=== PATIENT | female | born 1990 | race Caucasian/White ===

== ENCOUNTER 2017-07-07 21:47 | Emergency (ER) | payer OTHER ==
--- NOTE | 2017-07-07 21:53 | PDOC ---
History of Present Illness - General History Source: Patient Exam Limitations: No Limitations - History of Present Illness Initial Comments: 07/08/17 00:08 Patient is a 26 year old female, who is 14 weeks , with no significant past medical history who presents to the ED with complaint of bilateral lower abdominal pain that began at 9pm tonight. Patient reports experiencing sudden onset of bilateral lower abdominal pain while bathing her daughter, prompting her to come into the ED for further evaluation. She reports experiencing this pain once before, stating it was when she was in labor with her daughter. Patient describes bilateral lower abdominal pain as a sharp pain that feels like pins and needles. She reports experiencing lower back pain secondary to abdominal pain. Patient states she hasn't felt the baby since yesterday. She reports her last menstrual cycle was at the end of February. Denies chest pain, Sob. Denies nausea, vomiting. Denies chills, fevers. Denies trauma to affected area. Denies any other symptoms. Allergies: Social history: Lives with daughter. No smoking. No alcohol. Former marijuana use. Surgical history: C section. Gallbladder. Ectopic PMD: Dr. Hari Lazo. <Shmuel Damico - Last Filed: 07/08/17 00:08> <Ladonna Darden - Last Filed: 07/08/17 01:01> - General Stated Complaint: PAIN (16 WEEKS) Time Seen by Provider: 07/07/17 21:52 Past History <Shmuel Damico - Last Filed: 07/08/17 00:08> - Past Medical History Asthma: No Cancer: No Cardiac Disorders: No COPD: No Diabetes: No GI Disorders: No Disorders: No HTN: No Kidney Stones: No Seizures: No Thyroid Disease: No - Surgical History Abdominal Surgery: No Appendectomy: No Cardiac Surgery: No Cholecystectomy: No Lung Surgery: No Neurologic Surgery: No Orthopedic Surgery: No - Reproductive History PID: No - Suicide/Smoking/Psychosocial Hx Smoking History: Current every day smoker Have you smoked in the past 12 months: Yes Number of Cigarettes Smoked Daily: 20 'Breaking Loose' booklet given: 01/07/16 Hx Alcohol Use: No Drug/Substance Use Hx: Yes Substance Use Type: Cocaine (Started using cocaine at age 18 and consumes 2 bags 1-2x weekly. Last used it on 12/28/15), Marijuana (Started smoking marijuana at age 15 and consumes 6 blunts daily. Last smoked it on 12/29/15), Opiates (Started using oxycodone at age 23and consumes 10 mg 1-3x in the last 30 days. Lastused it on 02/01/15) Hx Substance Use Treatment: Yes (OPD at [facility]) <Ladonna Darden - Last Filed: 07/08/17 01:01> - Past Medical History Allergies/Adverse Reactions: Allergies Allergy/AdvReac Type Severity Reaction Status Date / Time No Known Allergies Allergy Verified 07/07/17 22:01 Home Medications: Ambulatory Orders NK [No Known Home Medication] 01/07/16 Abd/GI Specific PMHX - Complaint Specific PMHX Hepatitis: No Pancreatitis: No <Ladonna Darden - Last Filed: 07/08/17 01:01> Review of Systems - Review of Systems Able to Perform ROS?: Yes Comments:: 07/08/17 00:08 CONSTITUTIONAL: Absent: fever, chills, diaphoresis, generalized weakness, malaise, loss of appetite HEENT: Absent: rhinorrhea, nasal congestion, throat pain, throat swelling, difficulty swallowing, mouth swelling, ear pain, eye pain, visual Changes CARDIOVASCULAR: Absent: chest pain, syncope, palpitations, irregular heart rate, lightheadedness , peripheral edema RESPIRATORY: Absent: cough, shortness of breath, dyspnea with exertion, orthopnea, wheezing, stridor, hemoptysis GASTROINTESTINAL: +bilateral lower abdominal pain. Absent: abdominal distension, nausea, vomiting, diarrhea, constipation, melena , hematochezia GENITOURINARY: Absent: dysuria, frequency, urgency, hesitancy, hematuria, flank pain, genital pain MUSCULOSKELETAL: +Lower back pain. Absent: myalgia, arthralgia, joint swelling SKIN: Absent: rash, itching, pallor HEMATOLOGIC/IMMUNOLOGIC: Absent: easy bleeding, easy bruising, lymphadenopathy, frequent infections ENDOCRINE: Absent: unexplained weight gain, unexplained weight loss, heat intolerance, cold intolerance NEUROLOGIC: Absent: headache, focal weakness or paresthesias, dizziness, unsteady gait, seizure, mental status changes, bladder or bowel incontinence PSYCHIATRIC: Absent: anxiety, depression, suicidal or homicidal ideation, hallucinations. All Other Systems: Reviewed and Negative <Shmuel Damico - Last Filed: 07/08/17 00:08> *Physical Exam - Vital Signs Last Vital Signs Temp Pulse Resp BP Pulse Ox 97.8 F 90 16 123/59 100 07/07/17 22:01 07/07/17 22:01 07/07/17 22:01 07/07/17 22:01 07/07/17 22:01 - Physical Exam Comments: 07/08/17 00:08 GENERAL: Well-appearing, well-nourished. No apparent distress. HEENT: Normocephalic, atraumatic. PERRL, EOM intact. CARDIOVASCULAR: Normal S1, S2. Regular rate and rhythm. PULMONARY: Clear to auscultation bilaterally. ABDOMEN: +Tingle in lower abdomen. No vaginal bleeding. Soft, non-distended, non-tender. EXTREMITIES: Normal ROM in all four extremities. No gross deformities. SKIN: Warm, dry. No rash NEUROLOGICAL: No focal neurological deficits. <Shmuel Damico - Last Filed: 07/08/17 00:08> ED Treatment Course - ADDITIONAL ORDERS Additional order review: Laboratory Results 07/07/17 07/07/17 22:11 22:11 Beta HCG, Quant 76772.3 Blood Type B POSITIVE Antibody Screen Negative <Shmuel Damico - Last Filed: 07/08/17 00:08> Medical Decision Making - Medical Decision Making 07/08/17 00:59 Ultrasound shows gestational age 16 weeks 4 days, sooner live IUP, heart rate 146. Closed. Cervix <Ladonna Darden - Last Filed: 07/08/17 01:01> *DC/Admit/Observation/Transfer - Attestations Scribe Attestion: 07/08/17 00:08 Documentation prepared by Shmuel Damico, acting as medical staff credentialing coordinator for Ladonna Darden MD/DO. <Shmuel Damico - Last Filed: 07/08/17 00:08> <Ladonna Darden - Last Filed: 07/08/17 01:01> Diagnosis at time of Disposition: Second trimester - Discharge Dispostion Disposition: HOME Condition at time of disposition: Stable - Referrals Referrals: Selwyn Lazo [Primary Care Provider] - - Patient Instructions Printed Discharge Instructions: DI for -- Discomforts and Remedies Additional Instructions: please continue your care
[2017-07-07 22:04] VITALS: BP 123/59; PULSE 90; TEMP 97.8; BMI 26.5
== END 2017-07-08 01:08 | disposition home or self-care (01) ==
LOC: JER 21:47
DX: O26.892 Other specified pregnancy related conditions, second trimester (principal); R10.30 Lower abdominal pain, unspecified; M54.5 Low back pain; Z3A.16 16 weeks gestation of pregnancy
CPT/HCPCS: 36415; 76816-TC; 84702; 86850; 86900; 86901; 99282-25

== ENCOUNTER 2023-11-02 14:39 | Emergency (ER) | payer OTHER ==
[2023-11-02 14:56] VITALS: TEMP 98; BMI 30.1
[2023-11-02] MEDS ORDERED: ACETAMINOPHEN 500 MG TABLET (FP) ONE (15:55)
[2023-11-02] MEDS: ACETAMINOPHEN 500 MG TABLET (FP) PO ONE (15:56)
[2023-11-02 16:04] LABS: BASO % 0.6 % (0-2.0); EOS % 1.5 % (0-4.5); HEMATOCRIT 37.5 % (32.4-45.2); HEMOGLOBIN 12.2 GM/dL (10.7-15.3); MCH 23.2 pg (25.7-33.7); MCHC 32.4 g/dl (32.0-36.0); MEAN CELL VOLUME 71.6 fl (80-96); MEAN PLT VOLUME 8.1 fl (7.5-11.1); MONO % 3.7 % (3.8-10.2); NEUT % 66.2 % (42.8-82.8); PLATELET COUNT 335 10^3/uL (134-434); RBC 5.23 M/mm3 (3.60-5.2); RDW 19.2 % (11.6-15.6); WHITE BLOOD COUNT 8.8 K/mm3 (4.0-10.0)
[2023-11-02 16:17] LABS: INR 1.03 (0.83-1.09); PROTHROMBIN TIME (PATIENT) 11.6 SEC (9.7-13.0)
[2023-11-02 16:26] LABS: POTASSIUM 3.8 mmol/L (3.5-5.1)
[2023-11-02 16:28] LABS: CALCIUM 9.3 mg/dL (8.5-10.1)
[2023-11-02 16:29] LABS: ALBUMIN 4.2 g/dl (3.4-5.0); BLOOD UREA NITROGEN 7.4 mg/dL (7-18)
[2023-11-02 16:33] LABS: BILIRUBIN,TOTAL 0.4 mg/dL (0.2-1); TOT PROT 8.3 g/dl (6.4-8.2)
[2023-11-02 16:52] LABS: CREATININE 0.8 mg/dL (0.55-1.3)
[2023-11-02] MEDS ORDERED: KETOROLAC TROMETHAMINE 15 MG/ML VIAL ONE (17:17)
[2023-11-02] MEDS: KETOROLAC TROMETHAMINE 15 MG/ML VIAL IVPUSH ONE (17:19)
[2023-11-02] MEDS: METHOTREXATE SODIUM/PF 25 MG/ML VIAL IM ONE (18:33)
[2023-11-02 18:49] VITALS: BP 104/56; PULSE 63; RESP 19
== END 2023-11-02 19:01 | disposition home or self-care (01) ==
LOC: JERFT 14:39
PROC: 3E0333Z Introduction of Anti-inflammatory into Peripheral Vein, Percutaneous Approach (ICD-10-PCS; principal; 2023-11-02)
PROC: 3E023GC Introduction of Other Therapeutic Substance into Muscle, Percutaneous Approach (ICD-10-PCS; 2023-11-02)
DX: O26.899 Other specified pregnancy related conditions, unspecified trimester (principal); R10.30 Lower abdominal pain, unspecified; R10.2 Pelvic and perineal pain; O00.90 Unspecified ectopic pregnancy without intrauterine pregnancy; Z3A.00 Weeks of gestation of pregnancy not specified
CPT/HCPCS: 36415; 80053; 84702; 85025; 85610; 86850; 86900; 86901; 99284-25; J9260

== ENCOUNTER 2023-11-05 09:38 | Emergency (ER) | payer OTHER ==
[2023-11-05 09:52] VITALS: BP 113/78; PULSE 84; RESP 16; TEMP 98.2; BMI 30.1
== END 2023-11-05 11:41 | disposition home or self-care (01) ==
LOC: JERFT 09:38
DX: O00.90 Unspecified ectopic pregnancy without intrauterine pregnancy (principal)
CPT/HCPCS: 36415; 84702

== ENCOUNTER 2023-11-08 12:39 | Emergency (ER) | payer OTHER ==
[2023-11-08 12:46] VITALS: BP 95/54; PULSE 68; RESP 18; TEMP 98.1; BMI 30.1
== END 2023-11-08 13:59 | disposition home or self-care (01) ==
LOC: JER 12:39 → JERFT 12:39
DX: O00.90 Unspecified ectopic pregnancy without intrauterine pregnancy (principal); O02.81 Inappropriate change in quantitative human chorionic gonadotropin (hCG) in early pregnancy
CPT/HCPCS: 36415; 84702; 99283-25